=== PATIENT | female | born 1985 | race Two or more races ===

== ENCOUNTER 2021-04-21 01:30 | Emergency (ER) | payer OTHER ==
[~2021-04-21] VITALS: Ht 157.5 cm; Wt 68.0 kg
[2021-04-21] MEDS ORDERED: ALLEGRA ALLERG180 MG PO (03:48)
[2021-04-21] MEDS ORDERED: MEDROL8 MG PO (03:48)
== END 2021-04-21 03:54 | disposition home or self-care (01) ==
LOC: ER 01:30
DX: R06.02 Shortness of breath (principal); T78.49XA Other allergy, initial encounter

== ENCOUNTER 2021-04-27 19:47 | Emergency (ER) | payer OTHER ==
[~2021-04-27] VITALS: Ht 157.5 cm; Wt 68.0 kg
[~2021-04-27 19:47] MED LIST: ALLEGRA ALLERG180 MG PO; MEDROL8 MG PO
== END 2021-04-27 23:01 | disposition home or self-care (01) ==
LOC: ER 19:47
DX: U07.1 COVID-19 (principal); B34.9 Viral infection, unspecified; R05.9 Cough, unspecified; R07.0 Pain in throat